=== PATIENT | male | born 1935 ===

== ENCOUNTER 2021-06-08 13:05 | Inpatient (IN) | payer OTHER ==
[~2021-06-08] VITALS: Ht 172.7 cm; Wt 65.6 kg
[2021-06-08 14:36] LABS: Basophils # (auto) 0 10 ^3/uL (0-0.2); Basophils % (auto) 0.6 % (0.0-2.0); Eosinophils # (auto) 0 10 ^3/uL (0-0.8); Hemoglobin 9.3 g/dL (13.5-17.5); Lymphocytes # (auto) 0.2 10 ^3/uL (0.4-5.4); Lymphocytes % (auto) 3.5 % (10.0-50.0); Mean Corpuscular Hemoglobin 31.4 pg (28.0-32.0); Mean Corpuscular Hgb Conc. 32.2 g/dL (32.0-36.0); Mean Corpuscular Volume 97.7 fL (80.0-100.0); Monocytes # (auto) 0.3 10 ^3/uL (0-1.3); Monocytes % (auto) 6.5 % (0.0-12.0); Neutrophils # (auto) 4.2 10 ^3/uL (1.6-8.6); Neutrophils % (auto) 89.4 % (37.0-80.0); Nucleated Red Blood Cells % 0.1 %; Red Blood Cells 2.96 10^6/uL (4.5-5.90); Red Cell Distribution Width 21.7 % (11.8-14.3); White Blood Cell 4.7 10^3/uL (4.4-10.8)
[2021-06-08 14:47] LABS: INR 3.1 (0.9-1.15)
[2021-06-08 15:01] LABS: Albumin 3.4 g/dL (3.4-5.0); Calcium 8.5 mg/dL (8.5-10.1); Magnesium 2.9 mg/dL (1.6-2.6); Potassium 4.7 mmol/L (3.5-5.1)
[2021-06-08 15:11] LABS: Bilirubin, Total 1.1 mg/dL (0.2-1.0); Total Protein 7.3 g/dL (6.4-8.2)
[2021-06-08 15:14] LABS: BUN/Creatinine Ratio 25.5
[2021-06-08] MEDS ORDERED: FUROSEMIDE 100 MG/10ML VIAL IV ONE (15:45)
[2021-06-08 16:21] LABS: Urine WBC None Seen /hpf (0 - 3)
[2021-06-08 16:41] LABS: Urine Bacteria NONE SEEN /hpf (None Seen); Urine Blood Negative /uL (Negative)
[2021-06-08] MEDS ORDERED: ONDANSETRON HCL 4 MG/2 ML VIAL IV PRN (17:30)
[2021-06-08] MEDS ORDERED: DEXTROSE (50%) 50ML SYRG IV PRN (17:30)
[2021-06-08] MEDS ORDERED: ALUM & MAG HYDROX-SIMETH LIQ(MAALOX) 30 ML PO PRN (17:30)
[2021-06-08] MEDS ORDERED: DOCUSATE SOD 100 MG CAP PO PRN (17:30)
[2021-06-08] MEDS ORDERED: NITROGLYCERIN 0.4 MG SL TAB SL PRN (17:30)
[2021-06-08 19:45] LABS: Cholesterol 80 mg/dL (< 200); HDL Cholesterol 39 mg/dL (40-59); LDL Cholesterol 40 mg/dL (< 100); Triglycerides 33 mg/dL (< 150)
[2021-06-08] MEDS: ACCU-CHEK COMFORT CURVE STRIP VI SCH (22:34)
[2021-06-08] MEDS: InsuLIN REG 1unit/0.01ml Soln (100units/ml) SC SCH (22:35)
[2021-06-08] MEDS: FUROSEMIDE 40 MG/4 ML VIAL IV SCH (22:39)
[2021-06-09] MEDS ORDERED: TIMO0.5S28 EACHEYE (02:36)
[2021-06-09] MEDS ORDERED: LATA0.0019 EACHEYE (02:36)
[2021-06-09] MEDS ORDERED: GLIP10TA9 PO (02:36)
[2021-06-09] MEDS ORDERED: FURO1TAB31 PO (02:36)
[2021-06-09] MEDS ORDERED: FINA5TAB4 PO (02:36)
[2021-06-09] MEDS: InsuLIN REG 1unit/0.01ml Soln (100units/ml) SC SCH ×4 (06:15→22:20)
[2021-06-09] MEDS: ACCU-CHEK COMFORT CURVE STRIP VI SCH ×4 (06:15→22:19)
[2021-06-09 06:20] LABS: Basophils # (auto) 0 10 ^3/uL (0-0.2); Basophils % (auto) 0.1 % (0.0-2.0); Eosinophils # (auto) 0 10 ^3/uL (0-0.8); Eosinophils % (auto) 0.2 % (0.0-7.0); Hematocrit 29.5 % (41.0-53.0); Hemoglobin 9.6 g/dL (13.5-17.5); Lymphocytes # (auto) 0.4 10 ^3/uL (0.4-5.4); Lymphocytes % (auto) 7.3 % (10.0-50.0); Mean Corpuscular Hemoglobin 31.1 pg (28.0-32.0); Mean Corpuscular Hgb Conc. 32.4 g/dL (32.0-36.0); Monocytes # (auto) 0.3 10 ^3/uL (0-1.3); Monocytes % (auto) 6.4 % (0.0-12.0); Neutrophils # (auto) 4.3 10 ^3/uL (1.6-8.6); Nucleated Red Blood Cells % 0.2 %; Red Blood Cells 3.07 10^6/uL (4.5-5.90); Red Cell Distribution Width 21.9 % (11.8-14.3)
[2021-06-09 06:24] LABS: Potassium 4.1 mmol/L (3.5-5.1)
[2021-06-09 06:38] LABS: Albumin 3.5 g/dL (3.4-5.0); BUN/Creatinine Ratio 29.7; Total Protein 7.2 g/dL (6.4-8.2)
[2021-06-09 08:00] VITALS: BP 164/66
[2021-06-09] MEDS: FUROSEMIDE 40 MG/4 ML VIAL IV SCH ×2 (11:30→22:19)
[2021-06-09 12:00] VITALS: BP_SYST 149; BP_SYST 155; BP_DIAS 74; BP_DIAS 79
[2021-06-09] MEDS ORDERED: cefTRIAXone 1GM/50ML D5W 50 ML IV ONE (14:00)
[2021-06-09] MEDS ORDERED: AZITHROMYCIN 500MG/ 250ML 250 ML IV ONE (14:00)
[2021-06-09 16:00] VITALS: BP 145/74
[2021-06-10 05:27] LABS: Basophils # (auto) 0 10 ^3/uL (0-0.2); Basophils % (auto) 0.3 % (0.0-2.0); Eosinophils # (auto) 0 10 ^3/uL (0-0.8); Eosinophils % (auto) 0.5 % (0.0-7.0); Hematocrit 27.9 % (41.0-53.0); Hemoglobin 9.3 g/dL (13.5-17.5); Lymphocytes # (auto) 0.3 10 ^3/uL (0.4-5.4); Lymphocytes % (auto) 5.4 % (10.0-50.0); Mean Corpuscular Hemoglobin 31.5 pg (28.0-32.0); Mean Corpuscular Hgb Conc. 33.2 g/dL (32.0-36.0); Mean Corpuscular Volume 94.9 fL (80.0-100.0); Monocytes # (auto) 0.4 10 ^3/uL (0-1.3); Monocytes % (auto) 6.2 % (0.0-12.0); Neutrophils # (auto) 5.3 10 ^3/uL (1.6-8.6); Neutrophils % (auto) 87.6 % (37.0-80.0); Nucleated Red Blood Cells % 0.2 %; Red Blood Cells 2.94 10^6/uL (4.5-5.90)
[2021-06-10 05:31] LABS: Red Cell Distribution Width 21.6 % (11.8-14.3)
[2021-06-10 05:39] LABS: Albumin 3.4 g/dL (3.4-5.0); Calcium 8.9 mg/dL (8.5-10.1); Magnesium 1.9 mg/dL (1.6-2.6); Potassium 4.1 mmol/L (3.5-5.1)
[2021-06-10 05:41] LABS: INR 3.08 (0.9-1.15); Partial Thromboplastin Time 41.6 sec (23.6-33.0)
[2021-06-10 05:43] LABS: BUN/Creatinine Ratio 28.7; Total Protein 6.9 g/dL (6.4-8.2)
[2021-06-10 06:00] VITALS: BP 145/71
[2021-06-10] MEDS: InsuLIN REG 1unit/0.01ml Soln (100units/ml) SC SCH ×4 (07:00→22:41)
[2021-06-10] MEDS: ACCU-CHEK COMFORT CURVE STRIP VI SCH ×4 (07:02→22:46)
[2021-06-10 09:00] VITALS: BP 143/80
[2021-06-10] MEDS: FUROSEMIDE 40 MG/4 ML VIAL IV SCH ×2 (10:00→22:14)
[2021-06-10] MEDS: cefTRIAXone 1GM/50ML D5W 50 ML IV SCH (10:00)
[2021-06-10] MEDS: AZITHROMYCIN 500MG/ 250ML 250 ML IV SCH (11:00)
[2021-06-10 12:00] VITALS: BP 145/78
[2021-06-10 16:00] VITALS: BP 143/68
[2021-06-10 22:00] VITALS: BP 157/48
[2021-06-11 06:00] VITALS: BP 137/71
[2021-06-11] MEDS: InsuLIN REG 1unit/0.01ml Soln (100units/ml) SC SCH ×4 (06:17→21:34)
[2021-06-11 06:58] LABS: INR 2.2 (0.9-1.15); Partial Thromboplastin Time 38.4 sec (23.6-33.0)
[2021-06-11] MEDS: ACCU-CHEK COMFORT CURVE STRIP VI SCH ×4 (07:00→21:41)
[2021-06-11 07:03] LABS: Calcium 8.8 mg/dL (8.5-10.1); Potassium 3.8 mmol/L (3.5-5.1)
[2021-06-11 07:06] LABS: BUN/Creatinine Ratio 29.7
[2021-06-11 09:00] VITALS: BP 129/67
[2021-06-11] MEDS: FUROSEMIDE 40 MG/4 ML VIAL IV SCH ×2 (09:52→21:34)
[2021-06-11] MEDS: cefTRIAXone 1GM/50ML D5W 50 ML IV SCH (09:53)
[2021-06-11 13:00] VITALS: BP 156/81
[2021-06-11] MEDS: AZITHROMYCIN 500MG/ 250ML 250 ML IV SCH (13:38)
[2021-06-11] MEDS ORDERED: LACTULOSE 20Gm/30ML SOLN PO ONE (15:45)
[2021-06-11] MEDS ORDERED: PANT40TA2 PO (16:13)
[2021-06-11] MEDS ORDERED: MAGN400T40 PO (16:13)
[2021-06-11] MEDS ORDERED: TRAZ50TA2 PO (16:13)
[2021-06-11] MEDS ORDERED: CALC0.25 PO (16:13)
[2021-06-11] MEDS ORDERED: ASPI-498 PO (16:13)
[2021-06-11] MEDS ORDERED: TERA5CAP42 PO (16:13)
[2021-06-11] MEDS ORDERED: ASCO500T11 PO (16:13)
[2021-06-11] MEDS ORDERED: LISI40TA11 PO (16:13)
[2021-06-11] MEDS ORDERED: HYDR-4296 PO (16:13)
[2021-06-11] MEDS ORDERED: WARF2TAB49 PO (16:13)
[2021-06-11] MEDS ORDERED: CALC-337 PO (16:13)
[2021-06-11] MEDS ORDERED: TIMO0.5S28 EACHEYE (16:13)
[2021-06-11] MEDS ORDERED: FURO1TAB31 PO (16:13)
[2021-06-11] MEDS ORDERED: EPO2I IV (16:13)
[2021-06-11] MEDS ORDERED: ISOS60TA24 PO (16:13)
[2021-06-11 17:00] VITALS: BP 139/68
[2021-06-11] MEDS: ACETAMINOPHEN 325 MG TAB PO PRN (17:32)
[2021-06-11] MEDS: TEMAZEPAM 15 MG CAP PO PRN (21:30)
[2021-06-11 22:57] VITALS: BP 156/76
[2021-06-12 05:29] VITALS: BP 133/74
[2021-06-12] MEDS: InsuLIN REG 1unit/0.01ml Soln (100units/ml) SC SCH ×4 (06:28→21:35)
[2021-06-12] MEDS: ACCU-CHEK COMFORT CURVE STRIP VI SCH ×4 (06:29→22:00)
[2021-06-12 09:00] VITALS: BP 147/73
[2021-06-12] MEDS: ACETAMINOPHEN 325 MG TAB PO PRN ×2 (09:28→15:45)
[2021-06-12] MEDS: cefTRIAXone 1GM/50ML D5W 50 ML IV SCH (09:28)
[2021-06-12] MEDS: FUROSEMIDE 40 MG/4 ML VIAL IV SCH (09:29)
[2021-06-12 10:26] LABS: INR 1.82 (0.9-1.15)
[2021-06-12] MEDS: AZITHROMYCIN 500MG/ 250ML 250 ML IV SCH (11:49)
[2021-06-12 13:00] VITALS: BP 132/70
[2021-06-12 17:00] VITALS: BP 146/77
[2021-06-12] MEDS: traMADol HCL 50 MG TAB PO PRN (17:11)
[2021-06-12 20:00] VITALS: BP 144/64
[2021-06-12] MEDS: TEMAZEPAM 15 MG CAP PO PRN (21:49)
[2021-06-12 22:00] VITALS: BP 144/64
[2021-06-13 05:00] VITALS: BP 148/71
[2021-06-13] MEDS: ACCU-CHEK COMFORT CURVE STRIP VI SCH ×2 (07:00→11:30)
[2021-06-13] MEDS: InsuLIN REG 1unit/0.01ml Soln (100units/ml) SC SCH ×2 (07:00→11:30)
[2021-06-13 07:04] LABS: Basophils # (auto) 0 10 ^3/uL (0-0.2); Basophils % (auto) 0.7 % (0.0-2.0); Eosinophils # (auto) 0 10 ^3/uL (0-0.8); Hematocrit 26.5 % (41.0-53.0); Hemoglobin 8.7 g/dL (13.5-17.5); Lymphocytes # (auto) 0.4 10 ^3/uL (0.4-5.4); Lymphocytes % (auto) 8.1 % (10.0-50.0); Mean Corpuscular Hemoglobin 31.6 pg (28.0-32.0); Mean Corpuscular Hgb Conc. 32.9 g/dL (32.0-36.0); Mean Corpuscular Volume 96.1 fL (80.0-100.0); Monocytes # (auto) 0.5 10 ^3/uL (0-1.3); Monocytes % (auto) 10.2 % (0.0-12.0); Neutrophils # (auto) 3.9 10 ^3/uL (1.6-8.6); Nucleated Red Blood Cells % 0.2 %; Red Blood Cells 2.75 10^6/uL (4.5-5.90); Red Cell Distribution Width 21.3 % (11.8-14.3); White Blood Cell 4.9 10^3/uL (4.4-10.8)
[2021-06-13 07:14] LABS: INR 1.71 (0.9-1.15); Partial Thromboplastin Time 37.4 sec (23.6-33.0)
[2021-06-13 07:26] LABS: Calcium 8.4 mg/dL (8.5-10.1); Magnesium 1.7 mg/dL (1.6-2.6)
[2021-06-13 07:28] LABS: BUN/Creatinine Ratio 32.5
[2021-06-13 09:00] VITALS: BP 146/69
[2021-06-13] MEDS: cefTRIAXone 1GM/50ML D5W 50 ML IV SCH (09:00)
[2021-06-13] MEDS ORDERED: FUROSEMIDE 40 MG/4 ML VIAL IV SCH (10:00)
[2021-06-13] MEDS: AZITHROMYCIN 500MG/ 250ML 250 ML IV SCH (10:00)
[2021-06-13] MEDS: traMADol HCL 50 MG TAB PO PRN ×2 (11:15→11:50)
[2021-06-13 13:00] VITALS: BP 124/74
[2021-06-13] MEDS ORDERED: TRAM50TA2 PO (13:04)
[2021-06-13 14:30] VITALS: BP 124/74
[2021-06-13 16:48] VITALS: BP 143/76
== END 2021-06-13 18:25 | disposition home or self-care (01) | DRG 291 ==
LOC: ER 13:05 → EDBD 13:05 → OVERFLOW 17:22 → WEST WING 20:19
PROVIDERS: ADMIT Family Medicine; ATTEND Internal Medicine Geriatric Medicine
PROC: 0W993ZZ Drainage of Right Pleural Cavity, Percutaneous Approach (ICD-10-PCS; principal; 2021-06-13)
DX: I13.0 Hypertensive heart and chronic kidney disease with heart failure and stage 1 through stage 4 chronic kidney disease, or unspecified chronic kidney disease (principal); J18.9 Pneumonia, unspecified organism; J96.20 Acute and chronic respiratory failure, unspecified whether with hypoxia or hypercapnia; I50.43 Acute on chronic combined systolic (congestive) and diastolic (congestive) heart failure; R18.8 Other ascites; I48.20 Chronic atrial fibrillation, unspecified; N17.9 Acute kidney failure, unspecified; J91.8 Pleural effusion in other conditions classified elsewhere; E11.65 Type 2 diabetes mellitus with hyperglycemia; I48.91 Unspecified atrial fibrillation; D63.1 Anemia in chronic kidney disease; I25.10 Atherosclerotic heart disease of native coronary artery without angina pectoris; N18.9 Chronic kidney disease, unspecified; N40.0 Benign prostatic hyperplasia without lower urinary tract symptoms; E11.22 Type 2 diabetes mellitus with diabetic chronic kidney disease; E78.5 Hyperlipidemia, unspecified; I27.20 Pulmonary hypertension, unspecified; I34.0 Nonrheumatic mitral (valve) insufficiency; W18.39XA Other fall on same level, initial encounter; R79.1 Abnormal coagulation profile; Z20.822 Contact with and (suspected) exposure to COVID-19; Z79.01 Long term (current) use of anticoagulants; Z79.4 Long term (current) use of insulin; Z79.899 Other long term (current) drug therapy; Z88.5 Allergy status to narcotic agent; Z98.61 Coronary angioplasty status; Z99.81 Dependence on supplemental oxygen; Y93.89 Activity, other specified; Y92.098 Other place in other non-institutional residence as the place of occurrence of the external cause; Y99.8 Other external cause status; Z88.8 Allergy status to other drugs, medicaments and biological substances; Z86.73 Personal history of transient ischemic attack (TIA), and cerebral infarction without residual deficits
CPT/HCPCS: 32555; 36415; 70450; 71045; 76604; 76775; 76942; 80048; 80053; 80061; 81001; 82306; 82962; 83036; 83615; 83735; 83880; 83970; 84100; 84443; 84484; 85025; 85610; 85730; 87205; 87426; 89051; 93005; 93306; 96374; G0378; J0696; J1815

== ENCOUNTER 2021-07-13 13:05 | Emergency (ER) | payer OTHER ==
[~2021-07-13] VITALS: Ht 162.6 cm; Wt 60.8 kg
[~2021-07-13 13:05] MED LIST: ASCO500T11 PO; ASPI-498 PO; CALC-337 PO; CALC0.25 PO; EPO2I IV; FINA5TAB4 PO; FURO1TAB31 PO; GLIP10TA9 PO; HYDR-4296 PO; ISOS60TA24 PO; LATA0.0019 EACHEYE; LISI40TA11 PO; MAGN400T40 PO; PANT40TA2 PO; TERA5CAP42 PO; TIMO0.5S28 EACHEYE; TRAM50TA2 PO; TRAZ50TA2 PO; WARF2TAB49 PO
[2021-07-13 14:01] LABS: Basophils # (auto) 0 10 ^3/uL (0-0.2); Eosinophils # (auto) 0 10 ^3/uL (0-0.8); Monocytes # (auto) 0.3 10 ^3/uL (0-1.3); Neutrophils # (auto) 3.7 10 ^3/uL (1.6-8.6); White Blood Cell 4.5 10^3/uL (4.4-10.8)
[2021-07-13 14:04] LABS: Basophils % (auto) 0.5 % (0.0-2.0); Eosinophils % (auto) 0.3 % (0.0-7.0); Hematocrit 21.5 % (41.0-53.0); Hemoglobin 7.4 g/dL (13.5-17.5); Lymphocytes # (auto) 0.5 10 ^3/uL (0.4-5.4); Lymphocytes % (auto) 10.5 % (10.0-50.0); Mean Corpuscular Hemoglobin 32.1 pg (28.0-32.0); Mean Corpuscular Hgb Conc. 34.3 g/dL (32.0-36.0); Mean Corpuscular Volume 93.5 fL (80.0-100.0); Monocytes % (auto) 5.8 % (0.0-12.0); Neutrophils % (auto) 82.9 % (37.0-80.0); Nucleated Red Blood Cells % 0.1 %
[2021-07-13 14:08] LABS: Red Cell Distribution Width 20.7 % (11.8-14.3)
[2021-07-13 14:14] LABS: INR 3.01 (0.9-1.15); Partial Thromboplastin Time 41.3 sec (23.6-33.0)
[2021-07-13 14:16] LABS: BUN/Creatinine Ratio 23.2; Calcium 8.8 mg/dL (8.5-10.1); Magnesium 2.4 mg/dL (1.6-2.6)
[2021-07-13 14:21] LABS: Bilirubin, Total 0.9 mg/dL (0.2-1.0); Total Protein 6.9 g/dL (6.4-8.2)
[2021-07-13 17:02] VITALS: BP 111/40
== END 2021-07-13 17:41 | disposition short-term general hospital (02) ==
LOC: ER 13:05
DX: R53.1 Weakness (principal); I25.10 Atherosclerotic heart disease of native coronary artery without angina pectoris; I48.91 Unspecified atrial fibrillation; E87.5 Hyperkalemia; J90 Pleural effusion, not elsewhere classified; E46 Unspecified protein-calorie malnutrition; E11.22 Type 2 diabetes mellitus with diabetic chronic kidney disease; I13.2 Hypertensive heart and chronic kidney disease with heart failure and with stage 5 chronic kidney disease, or end stage renal disease; I50.9 Heart failure, unspecified; N18.6 End stage renal disease; D63.1 Anemia in chronic kidney disease; E78.5 Hyperlipidemia, unspecified; Z99.2 Dependence on renal dialysis; Z68.23 Body mass index [BMI] 23.0-23.9, adult; Z20.822 Contact with and (suspected) exposure to COVID-19
CPT/HCPCS: 36415; 71045; 80053; 83735; 84484; 85025; 85610; 85730; 86850; 86900; 86901; 87426; 93005